=== PATIENT | male | born 1960 | race Caucasian/White ===

== ENCOUNTER 2018-08-06 16:02 | Emergency (ER) | payer BC, MEDICAID ==
--- NOTE | 2018-08-06 17:03 | EDM.PDOC ---
ED HPI GENERAL MEDICAL PROBLEM - General Chief Complaint: Cardiovascular Problem Stated Complaint: SOB Time Seen by Provider: 08/06/18 16:34 Source of Information: Reports: Patient, RN Notes Reviewed History Limitations: Reports: No Limitations - History of Present Illness INITIAL COMMENTS - FREE TEXT/NARRATIVE: The patient states that he was hospitalized in [place] in late April/ early May of this year for shortness of breath. He says that his workup included an echocardiogram, which found a left ventricular ejection fraction to be depressed at 37%. He was subsequently started on furosemide, 2 tablets every morning. The patient now presents to our ED stating that he has had dyspnea for more than a week. He states that he feels it primarily when he first gets up in the morning. He states that it is primarily with exertion, like the physical strain of getting up, but then he feels better once he gets going. He 2 pillow orthopnea "forever", which has not changed recently. He denies recent cough or fever. He states that he wheezes every now and again, but coughs, and it clears. No recent chest discomfort. No prior similar symptoms. The patient has a history of diabetes. He checks his blood glucose every other day, with a typical range of 90 to 200, which has not changed recently. The patient states that he ordinarily takes lisinopril for his blood pressure, however, for reasons unclear, he has not taken any of it since March or April of this year. The patient's initial BP in the ED today is 208/116. The patient also has a history of obstructive sleep apnea, however, he tells me that he has not used his assigned CPAP for about the past 10 years. The patient states that he takes about 8 different medicines for a variety of medical issues, but he does not know what the names of the medicines are, their doses, or even what specific medical conditions he takes them for. He did not bring his medications or the list of his medications with him. The patient's PCP is Dr. Jun Mckeon, in [place]. Middle Chest Pain Score (Numeric/FACES): 5 - Related Data Allergies Allergy/AdvReac Type Severity Reaction Status Date / Time codeine Allergy rash nausea Verified 09/13/13 07:43 Home Meds: Home Meds Furosemide 2 tab PO ASDIRECTED #40 tablet 08/06/18 [Rx] Lisinopril 1 tab PO QPM #10 tablet 08/06/18 [Rx] Past Medical History Cardiovascular History: Reports: CAD, Heart Failure, High Cholesterol, Hypertension (untreated since around Mar or Apr 2018), RI (x 2) Respiratory History: Reports: Sleep Apnea (noncompliant with CPAP) Musculoskeletal History: Reports: Arthritis Neurological History: Reports: Neuropathy, Diabetic Psychiatric History: Reports: Anxiety Endocrine/Metabolic History: Reports: Diabetes, Type II, Obesity/BMI 30+ - Past Surgical History HEENT Surgical History: Reports: Oral Surgery (wisdom teeth extraction) Cardiovascular Surgical History: Reports: Coronary Artery Stent (x 3), Other ( See Below) (3 coronary angiograms) Male Surgical History: Reports: Other (See Below) (Reduction of left cryptorchidism) Neurological Surgical History: Reports: Other (See Below) (Right hand nerve repair) Musculoskeletal Surgical History: Reports: Shoulder Surgery (left, open) Social & Family History - Family History Family Medical History: Noncontributory - Tobacco Use Smoking Status *Q: Former Smoker Month/Year Tobacco Last Used: Quit 1981 - Caffeine Use Caffeine Use: Reports: Tea - Alcohol Use Alcohol Use History: Yes Alcohol Use Frequency: Socially - Recreational Drug Use Recreational Drug Use: Yes Drug Use in Last 12 Months: Yes Recreational Drug Type: Reports: Marijuana/Hashish (smokes on occasion) Recreational Drug Use Frequency: Weekly - Living Situation & Occupation Living situation: Reports: , Other (with a coworker) Occupation: Employed ([employer]) ED ROS GENERAL - Review of Systems Review Of Systems: ROS reveals no pertinent complaints other than HPI. ED EXAM, GENERAL - Physical Exam Exam: See Below Exam Limited By: No Limitations General Appearance: Alert, WD/WN, No Apparent Distress Eye Exam: Bilateral Eye: EOMI, Normal Inspection Ears: Normal External Exam, Hearing Grossly Normal Nose: Normal Inspection Throat/Mouth: Normal Inspection, Normal Lips, Normal Voice, No Airway Compromise Head: Atraumatic, Normocephalic Neck: Normal Inspection, Full Range of Motion Respiratory/Chest: No Respiratory Distress, No Accessory Muscle Use, Decreased Breath Sounds, Splinting. No: Crackles, Rhonchi, Wheezing, Prolonged Expiration Cardiovascular: Normal Peripheral Pulses, Regular Rate, Rhythm, No Gallop, No JVD, No Murmur, No Rub Peripheral Pulses: 4+: Radial (L), Radial (R) GI/Abdominal: Normal Bowel Sounds, Soft, Non-Tender, No Organomegaly, No Distention, No Abnormal Bruit, No Mass, Other (Obese) (Male) Exam: Deferred Rectal (Males) Exam: Deferred Back Exam: Normal Inspection, Full Range of Motion, NT Extremities: Normal Inspection, Normal Range of Motion, Normal Capillary Refill , Other (Trace to 1+ pitting pretibial edema bilaterally) Neurological: Alert, Oriented, Normal Cognition, No Motor/Sensory Deficits Psychiatric: Normal Affect Skin Exam: Warm, Dry, Intact, Normal Color, No Rash EKG INTERPRETATION EKG Date: 08/06/18 Time: 16:13 Rhythm: NSR Rate (Beats/Min): 94 [place]igo: LAD-Left Antigo Deviation P-Wave: Enlarged (LAE) QRS: LBBB ST-T: Normal QT: Normal Comparison: NA - No Prior EKG Course - Vital Signs Last Recorded V/S: Last Vital Signs Temp 36.9 C 08/06/18 16:05 Pulse 100 08/06/18 16:05 Resp 18 08/06/18 16:05 BP 189/109 H 08/06/18 17:19 Pulse Ox 95 08/06/18 16:05 - Orders/Labs/Meds Orders: Active Orders 24 hr Category Date Time Status EKG Documentation Completion [RC] STAT Care 08/06/18 16:42 Active Ang Chest [CT] Stat Exams 08/06/18 17:37 Taken Chest 2V [CR] Stat Exams 08/06/18 16:42 Taken Labs: Laboratory Tests 08/06/18 08/06/18 08/06/18 Range/Units 16:15 16:15 16:15 WBC 10.74 H (4.23-9.07) K/mm3 RBC 4.74 (4.63-6.08) M/mm3 Hgb 13.4 L (13.7-17.5) gm/L Hct 40.5 (40.1-51.0) % MCV 85.4 (79.0-92.2) fl MCH 28.3 (25.7-32.2) pg MCHC 33.1 (32.2-35.5) g/dl RDW Std Deviation 47.6 H (35.1-43.9) fL Plt Count 314 (163-337) K/mm3 MPV 9.5 (9.4-12.3) fl Neutrophils % (Manual) 84 H (40-60) % Band Neutrophils % 1 (0-10) % Lymphocytes % (Manual) 11 L (20-40) % Atypical Lymphs % 0 % Monocytes % (Manual) 3 (2-10) % Eosinophils % (Manual) 1 (0.8-7.0) % Basophils % (Manual) 0 L (0.2-1.2) Platelet Estimate Adequate RBC Morph Comment Normal D-Dimer, Quantitative 0.68 H (0.19-0.50) mg/L Sodium 139 (136-145) mEq/L Potassium 4.0 (3.5-5.1) mEq/L Chloride 103 (98-107) mEq/L Carbon Dioxide 28 (21-32) mEq/L Anion Gap 12.0 (5-15) BUN 19 H (7-18) mg/dL Creatinine 1.2 (0.7-1.3) mg/dL Est Cr Clr Drug Dosing 70.97 mL/min Estimated GFR (MDRD) > 60 (>60) mL/min BUN/Creatinine Ratio 15.8 (14-18) Glucose 268 H (74-106) mg/dL Calcium 8.6 (8.5-10.1) mg/dL Total Bilirubin 0.6 (0.2-1.0) mg/dL AST 16 (15-37) U/L ALT 29 (16-63) U/L Alkaline Phosphatase 113 (46-116) U/L Troponin I 0.032 (0.00-0.056) ng/mL NT-Pro-B Natriuret Pep (0-125) pg/mL Total Protein 7.0 (6.4-8.2) g/dl Albumin 3.2 L (3.4-5.0) g/dl Globulin 3.8 gm/dL Albumin/Globulin Ratio 0.8 L (1-2) 08/06/ Range/Units 16:15 WBC (4.23-9.07) K/mm3 RBC (4.63-6.08) M/mm3 Hgb (13.7-17.5) gm/L Hct (40.1-51.0) % MCV (79.0-92.2) fl MCH (25.7-32.2) pg MCHC (32.2-35.5) g/dl RDW Std Deviation (35.1-43.9) fL Plt Count (163-337) K/mm3 MPV (9.4-12.3) fl Neutrophils % (Manual) (40-60) % Band Neutrophils % (0-10) % Lymphocytes % (Manual) (20-40) % Atypical Lymphs % % Monocytes % (Manual) (2-10) % Eosinophils % (Manual) (0.8-7.0) % Basophils % (Manual) (0.2-1.2) Platelet Estimate RBC Morph Comment D-Dimer, Quantitative (0.19-0.50) mg/L Sodium (136-145) mEq/L Potassium (3.5-5.1) mEq/L Chloride (98-107) mEq/L Carbon Dioxide (21-32) mEq/L Anion Gap (5-15) BUN (7-18) mg/dL Creatinine (0.7-1.3) mg/dL Est Cr Clr Drug Dosing mL/min Estimated GFR (MDRD) (>60) mL/min BUN/Creatinine Ratio (14-18) Glucose (74-106) mg/dL Calcium (8.5-10.1) mg/dL Total Bilirubin (0.2-1.0) mg/dL AST (15-37) U/L ALT (16-63) U/L Alkaline Phosphatase (46-116) U/L Troponin I (0.00-0.056) ng/mL NT-Pro-B Natriuret Pep 1811 H (0-125) pg/mL Total Protein (6.4-8.2) g/dl Albumin (3.4-5.0) g/dl Globulin gm/dL Albumin/Globulin Ratio (1-2) Meds: Medications Discontinued Medications Generic Name Dose Route Start Last Admin Trade Name Freq PRN Reason Stop Dose Admin Furosemide 40 mg 08/06/18 17:26 08/06/18 17:35 Lasix IVPUSH 08/06/18 17:27 40 mg NOW ONE Administration Iohexol 75 ml 08/06/18 18:13 08/06/18 18:45 Omnipaque IVPUSH 08/06/18 18:14 75 ml ONETIME ONE Administration Lisinopril 20 mg 08/06/18 17:09 08/06/18 17:19 Prinivil PO 08/06/18 17:10 20 mg ONETIME STA Administration - Re-Assessments/Exams Free Text/Narrative Re-Assessment/Exam: 08/06/18 16:58 The etiology of the patient's dyspnea is not entirely clear. It may be, as the patient suspects, due to CHF, however, I want to exclude other causes as well. I ordered an ECG, a chest x-ray, and blood work. As per the HPI, the patient's initial BP in the ED is 208/116. The patient does not know the dose of lisinopril that he hasn't taken since March or April - I'm going to order 20 mg of oral lisinopril. 08/06/18 17:24 2 view chest radiograph reviewed. The cardiac silhouette is within normal limits. There is pulmonary vascular congestion, consistent with congestive heart failure. No pleural effusions. No focal infiltrate, although there may be some atelectasis seen at the posterior sulcus. No pneumothorax. Formal read per the Radiologist pending. The patient's CMP is remarkable for a BUN slightly elevated at 19, with a normal creatinine. His blood glucoses elevated at 268. The patient's troponin is within normal limits. The patient's BNP is only mildly elevated at 1811. The patient's mildly elevated BNP is consistent with the chest x-ray not showing cardiomegaly, however, with chest x-ray showing pulmonary vascular congestion, I suspect that the patient is suffering from diastolic dysfunction, likely related to his untreated hypertension. I will order 40 mg of IV furosemide. 08/06/18 17:38 The patient's D-dimer has returned elevated at 0.68. I have ordered a CT angiogram of the chest to evaluate for a PE. Because the patient has pulmonary vascular congestion, I am not going to order IV fluid. 08/06/18 19:27 The patient's CBC is remarkable for WBC count elevated at 10.74, but with only 1 % bandemia. The remainder of the CBC is unremarkable. CT angiogram of the chest is read by [facility] as: 1. Bilateral pleural effusions. 2. Mild cardiomegaly. 3. Ground-glass opacifications in both lung yi and pulmonary vascular engorgement. These findings are most compatible with congestive heart failure and pulmonary edema. 4. Calcifications along the anterior longitudinal ligament the raise the question of ankylosing spondylitis. 5. No sign of pulmonary embolism. 08/06/18 19:49 Test results discussed with the patient. He called his roommate and got his actual current medication list which includes furosemide 20 mg, 2 tablets QAM. He had previously been prescribed Bumex 1 mg BID, but this was discontinued in May after the patient developed blurry vision. The patient states that he feels much better after diuresing 3 urinals, after receiving 40 mg of IV Lasix. Going forward, I will have the patient increase his furosemide to 40 mg po at 6 AM, as he is currently taking, then add an additional 40 mg at noon. I will also write a prescription for lisinopril 20 mg po QPM. The patient is to follow-up with his PCP at the next available appointment, which he expects will be this week or next. With respect to the patient's hyperglycemia, the patient is confident that his blood glucose will come down as his blood pressure comes down. Departure - Departure Time of Disposition: 19:51 Disposition: Home, Self-Care 01 Condition: Good Clinical Impression: Congestive heart failure (CHF), Hypertension, Hyperglycemia due to type 2 diabetes mellitus Prescriptions: Furosemide 2 tab PO ASDIRECTED #40 tablet Lisinopril 1 tab PO QPM #10 tablet Referrals: Jun Mckeon MD [Primary Care Provider] - Forms: ED Department Discharge Additional Instructions: You were seen in the emergency room for shortness of breath for more than a week. Workup in the ER included blood work, a chest x-ray, a CT angiogram of your chest, and an ECG. Your blood pressure was significantly elevated in the ER. You were given 20 mg of oral lisinopril. Your workup found your blood sugar to be significantly elevated at 268. You expect your blood sugar to come down as your blood pressure comes down. The chest x-ray and CT scan of your chest both found pulmonary edema, indicating decompensated congestive heart failure. You were given 40 mg of IV furosemide in the ER. Prescriptions for lisinopril and furosemide have been provided to you. Take one tablet of lisinopril every evening, as prescribed. Take 2 tablets (40 mg) of furosemide every morning at 6:00, then another 2 tablets (40 mg) at noon, every day. Follow-up with your PCP, Dr. Jun Mckeon, at the next available appointment. When there, please discuss the new prescriptions that you have been given, to see if he wants to continue them. If any other problems, please do not hesitate to return to the ER. - My Orders Last 24 Hours: My Active Orders 08/06/18 16:42 EKG Documentation Completion [RC] STAT Chest 2V [CR] Stat 08/06/18 17:37 Ang Chest [CT] Stat - Assessment/Plan Last 24 Hours: My Active Orders 08/06/18 16:42 EKG Documentation Completion [RC] STAT Chest 2V [CR] Stat 08/06/18 17:37 Ang Chest [CT] Stat
[2018-08-06] MEDS ORDERED: Lisinopril 20 MG Tab PO STA (17:09)
[2018-08-06] MEDS ORDERED: Furosemide 40 MG/4 ML VIAL IVPUSH ONE (17:26)
[2018-08-06] MEDS ORDERED: Iohexol 350 MG/ML 75 ML Bottle IVPUSH ONE (18:13)
[2018-08-06] MEDS ORDERED: Iopamidol 755 Mg/ML 100 ML Bottle IVPUSH ONE (18:14)
--- NOTE | 2018-08-08 10:00 | CT ---
CT chest Technique: Multiple axial sections were obtained from above the lung apices inferiorly through the lung bases. Intravenous contrast was utilized. Study has been performed as a pulmonary angiogram protocol. Comparison: No prior chest CT, previous chest x-ray performed earlier on the same day (4:59 PM). Findings: Small bilateral pleural effusions are seen. Mediastinum and hilar regions show no adenopathy or mass. Moderately prominent coronary artery calcification is seen. Pulmonary arteries show no filling defects to indicate pulmonary embolism. Heart size is slightly prominent. Small portion of the visualized upper abdominal structures are within normal limits. No acute parenchymal change is seen. Hazy perivascular change is noted which is felt compatible with pulmonary vascular congestion. Bone window settings were reviewed which show no acute osseous abnormality. Degenerative change is scattered within the spine with disc space narrowing and endplate osteophytes. Impression: 1. Findings compatible with CHF. 2. No findings of pulmonary embolism. 3. Other incidental findings. Diagnostic code #3 I agree with preliminary report from [facility], finalized on 08/06/18, 8:20 PM Central Time
--- NOTE | 2018-08-08 10:12 | CR ---
Chest: Two views of the chest were obtained. Comparison: No prior chest x-ray, subsequent chest CT performed on the same day is available. Findings: Heart size at the upper limits of normal. Slight tortuosity of the thoracic aorta is seen. Small bilateral pleural effusions are seen. Pulmonary vessels appear to be mildly congested. Bony structures show degenerative spurring within the spine. Impression: 1. Findings felt compatible with mild CHF. Diagnostic code #3
== END 2018-08-06 20:36 | disposition home or self-care (01) ==
LOC: JD.ED 16:02
DX: I11.0 Hypertensive heart disease with heart failure (principal); I50.9 Heart failure, unspecified; E11.65 Type 2 diabetes mellitus with hyperglycemia; I25.10 Atherosclerotic heart disease of native coronary artery without angina pectoris; E11.40 Type 2 diabetes mellitus with diabetic neuropathy, unspecified; Z87.891 Personal history of nicotine dependence; Z88.5 Allergy status to narcotic agent
CPT/HCPCS: 36415; 71046; 71275; 80053; 83880; 84484; 85007; 85027; 85379; 93005; 96374; 99285; A9270; J1940; Q9967; 93010; 99284

== ENCOUNTER 2018-08-21 06:18 | Emergency (ER) | payer MEDICAID ==
[2018-08-21] MEDS ORDERED: Sodium Chloride 0.9% 10 ML Syringe FLUSH PRN (07:07)
[2018-08-21] MEDS ORDERED: Furosemide 40 MG/4 ML VIAL IVPUSH ONE (07:08)
--- NOTE | 2018-08-21 08:28 | CR ---
Chest: Portable view of the chest was obtained. Comparison: Prior chest x-ray of 08/06/18. Heart is mildly enlarged. Lungs are clear. No acute pulmonary vascular congestion is seen. No pleural effusions are identified. Bony structures are grossly intact. Impression: 1. Nothing acute is appreciated on portable chest x-ray. Diagnostic code #2
--- NOTE | 2018-08-21 08:29 | EDM.PDOC ---
ED HPI GENERAL MEDICAL PROBLEM - General Chief Complaint: Respiratory Problem Stated Complaint: SOB Time Seen by Provider: 08/21/18 06:57 Source of Information: Reports: Patient History Limitations: Reports: No Limitations - History of Present Illness INITIAL COMMENTS - FREE TEXT/NARRATIVE: The patient presents with shortness of breath. He noticed some shortness of breath last night. This morning it was worse. He has no chest pain. He has no fever, chills, cough, congestion, runny nose, abdominal pain, nausea or vomiting. He has no edema in his legs. He has a history of CHF. He is on lasix 40mg 2 times per day. He had no changes to his medications recently. Three weeks ago he did go up with his lasix twice per day. Onset: Gradual Duration: Day(s): (Last night) Severity: Moderate Improves with: Reports: Immobilization Worsens with: Reports: Movement Associated Symptoms: Reports: Shortness of Breath. Denies: Chest Pain, Cough, Fever/Chills, Headaches, Nausea/Vomiting - Related Data Allergies Allergy/AdvReac Type Severity Reaction Status Date / Time codeine Allergy rash nausea Verified 08/21/18 06:33 Home Meds: Home Meds Apixaban [Eliquis] 5 mg PO BID 08/21/18 [History] Carvedilol 25 mg PO BID 08/21/18 [History] Clopidogrel Bisulfate [Clopidogrel] 75 mg PO DAILY 08/21/18 [History] Furosemide 40 mg PO ASDIRECTED 08/21/18 [History] Glimepiride 4 mg PO DAILY 08/21/18 [History] Insulin Aspart [NovoLOG] 10 unit SUBCUT BID 08/21/18 [History] Insulin Lispro [Humalog] 5 - 10 unit SUBCUT BID PRN 08/21/18 [History] Isosorbide Mononitrate 10 mg PO DAILY 08/21/18 [History] Lisinopril 20 mg PO QPM 08/21/18 [History] atorvaSTATin [Lipitor] 40 mg PO DAILY 08/21/18 [History] diazePAM [Valium] 5 mg PO BID PRN 08/21/18 [History] metFORMIN [Glucophage XR] 1,000 mg PO BID 08/21/18 [History] Past Medical History Cardiovascular History: Reports: CAD, Heart Failure, High Cholesterol, Hypertension, [place] Respiratory History: Reports: Sleep Apnea Musculoskeletal History: Reports: Arthritis Neurological History: Reports: Neuropathy, Diabetic Psychiatric History: Reports: Anxiety Endocrine/Metabolic History: Reports: Diabetes, Type II, Obesity/BMI 30+ - Past Surgical History HEENT Surgical History: Reports: Oral Surgery Cardiovascular Surgical History: Reports: Coronary Artery Stent, Other (See Below) Other GI Surgeries/Procedures: 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 Male Surgical History: Reports: Other (See Below) Neurological Surgical History: Reports: Other (See Below) Musculoskeletal Surgical History: Reports: Shoulder Surgery Social & Family History - Family History Family Medical History: Noncontributory - Tobacco Use Smoking Status *Q: Never Smoker - Caffeine Use Caffeine Use: Reports: Coffee, Tea - Recreational Drug Use Recreational Drug Use: Yes Recreational Drug Type: Reports: Marijuana/Hashish - Living Situation & Occupation Living situation: Reports: , Other (with a coworker) Occupation: Employed ([employer]) ED ROS GENERAL - Review of Systems Review Of Systems: See Below Constitutional: Reports: No Symptoms HEENT: Reports: No Symptoms Respiratory: Reports: Shortness of Breath. Denies: Cough Cardiovascular: Reports: No Symptoms Endocrine: Reports: No Symptoms GI/Abdominal: Reports: No Symptoms : Reports: No Symptoms Musculoskeletal: Reports: No Symptoms ED EXAM, GENERAL - Physical Exam Exam: See Below Exam Limited By: No Limitations General Appearance: Alert, No Apparent Distress Ears: Normal External Exam Nose: Normal Inspection Head: Atraumatic, Normocephalic Neck: Normal Inspection Respiratory/Chest: No Respiratory Distress, Decreased Breath Sounds, Rales Cardiovascular: Regular Rate, Rhythm, No Edema, No Murmur GI/Abdominal: Soft, Non-Tender, No Organomegaly, No Mass Back Exam: Normal Inspection Extremities: Normal Inspection Neurological: Alert, Oriented, No Motor/Sensory Deficits EKG INTERPRETATION EKG Date: 08/21/18 Time: 06:24 Rhythm: NSR Rate (Beats/Min): 87 [place]: Normal P-Wave: Present QRS: LBBB ST-T: Normal QT: Normal Course - Vital Signs Last Recorded V/S: Last Vital Signs Temp 98.1 F 08/21/18 06:24 Pulse 85 08/21/18 06:24 Resp 22 H 08/21/18 06:24 BP 205/117 H 08/21/18 06:24 Pulse Ox 90 L 08/21/18 06:24 - Orders/Labs/Meds Orders: Active Orders 24 hr Category Date Time Status Cardiac Monitoring [RC] . DIRECTED Care 08/21/18 07:07 Active EKG Documentation Completion [RC] STAT Care 08/21/18 07:07 Active Peripheral IV Care [RC] . DIRECTED Care 08/21/18 07:08 Active Sodium Chloride 0.9% [Saline Flush] Med 08/21/18 07:07 Active 10 ml FLUSH ASDIRECTED PRN Peripheral IV Insertion Adult [OM.PC] Stat Oth 08/21/18 07:07 Ordered Medication Orders Sodium Chloride (Saline Flush) 10 ml FLUSH ASDIRECTED PRN PRN Reason: Keep Vein Open Last Admin: 08/21/18 07:29 Dose: 10 ml Labs: Laboratory Tests 08/21/18 08/21/18 08/21/18 Range/Units 07:25 07:25 07:25 WBC 11.01 H (4.23-9.07) K/mm3 RBC 4.52 L (4.63-6.08) M/mm3 Hgb 12.8 L (13.7-17.5) gm/L Hct 39.2 L (40.1-51.0) % MCV 86.7 (79.0-92.2) fl MCH 28.3 (25.7-32.2) pg MCHC 32.7 (32.2-35.5) g/dl RDW Std Deviation 46.9 H (35.1-43.9) fL Plt Count 264 (163-337) K/mm3 MPV 8.8 L (9.4-12.3) fl Neut % (Auto) 82.6 H (34.0-67.9) % Lymph % (Auto) 9.7 L (21.8-53.1) % [place] % (Auto) 5.9 (5.3-12.2) % Eos % (Auto) 1.4 (0.8-7.0) Baso % (Auto) 0.2 (0.1-1.2) % Neut # (Auto) 9.10 H (1.78-5.38) K/mm3 Lymph # (Auto) 1.07 L (1.32-3.57) K/mm3 [place] # (Auto) 0.65 (0.30-0.82) K/mm3 Eos # (Auto) 0.15 (0.04-0.54) K/mm3 Baso # (Auto) 0.02 (0.01-0.08) K/mm3 Manual Slide Review Abnormal smear Sodium 140 (136-145) mEq/L Potassium 3.8 (3.5-5.1) mEq/L Chloride 105 (98-107) mEq/L Carbon Dioxide 27 (21-32) mEq/L Anion Gap 11.8 (5-15) BUN 22 H (7-18) mg/dL Creatinine 1.2 (0.7-1.3) mg/dL Est Cr Clr Drug Dosing 73.21 mL/min Estimated GFR (MDRD) > 60 (>60) mL/min BUN/Creatinine Ratio 18.3 H (14-18) Glucose 278 H (74-106) mg/dL Calcium 8.7 (8.5-10.1) mg/dL Total Bilirubin 0.5 (0.2-1.0) mg/dL AST 13 L (15-37) U/L ALT 26 (16-63) U/L Alkaline Phosphatase 106 (46-116) U/L Troponin I 0.040 (0.00-0.056) ng/mL NT-Pro-B Natriuret Pep 1950 H (0-125) pg/mL Total Protein 6.5 (6.4-8.2) g/dl Albumin 3.1 L (3.4-5.0) g/dl Globulin 3.4 gm/dL Albumin/Globulin Ratio 0.9 L (1-2) Meds: Medications Generic Name Dose Route Start Last Admin Trade Name Freq PRN Reason Stop Dose Admin Sodium Chloride 10 ml 08/21/18 07:07 08/21/18 07:29 Saline Flush FLUSH 10 ml ASDIRECTED PRN Administration Keep Vein Open Discontinued Medications Generic Name Dose Route Start Last Admin Trade Name Freq PRN Reason Stop Dose Admin Furosemide 80 mg 08/21/18 07:08 08/21/18 07:29 Lasix IVPUSH 08/21/18 07:09 80 mg NOW ONE Administration - Re-Assessments/Exams Free Text/Narrative Re-Assessment/Exam: 08/21/18 08:27 I ordered an IV saline lock, lasix 80mg IV, labs, EKG and CXR. His EKG shows a LBBB with no acute changes. His CXR shows cardiomegaly but no congestion. His WBC was elevated at 11.01. His Hgb was a little low at 12.8. His creatinine was normal at 1.2. His glucose was elevated at 278. His troponin was normal at 0.4. His BNP was elevated at 1950. 08/21/18 08:32 He has urinated a couple times and he is sleeping now. I will have him go up with his lasix in the morning for 3 days and follow up with his doctor in 1 week. Departure - Departure Time of Disposition: 08:35 Disposition: Home, Self-Care 01 Condition: Good Clinical Impression: Congestive heart failure (CHF) Qualifiers: Heart failure type: unspecified Heart failure chronicity: acute on chronic Qualified Code(s): I50.9 - Heart failure, unspecified - Discharge Information *PRESCRIPTION DRUG MONITORING PROGRAM REVIEWED*: Not Applicable *COPY OF PRESCRIPTION DRUG MONITORING REPORT IN PATIENT ZELDA: Not Applicable Referrals: Jun Mckeon MD [Primary Care Provider] - 1 Week Forms: ED Department Discharge Additional Instructions: Take 60mg of lasix or 3 pills in the morning for 3 days and continue with the noon dose of 40mg. Take the rest of your medications the same. Please return if you are worse. - My Orders Last 24 Hours: My Active Orders 08/21/18 07:07 Cardiac Monitoring [RC] . DIRECTED EKG Documentation Completion [RC] STAT Sodium Chloride 0.9% [Saline Flush] 10 ml FLUSH ASDIRECTED PRN Peripheral IV Insertion Adult [OM.PC] Stat 08/21/18 07:08 Peripheral IV Care [RC] . DIRECTED - Assessment/Plan Last 24 Hours: My Active Orders 08/21/18 07:07 Cardiac Monitoring [RC] . DIRECTED EKG Documentation Completion [RC] STAT Sodium Chloride 0.9% [Saline Flush] 10 ml FLUSH ASDIRECTED PRN Peripheral IV Insertion Adult [OM.PC] Stat 08/21/18 07:08 Peripheral IV Care [RC] . DIRECTED
== END 2018-08-21 08:42 | disposition home or self-care (01) ==
LOC: JD.ED 06:18
DX: I11.0 Hypertensive heart disease with heart failure (principal); I50.9 Heart failure, unspecified; E11.40 Type 2 diabetes mellitus with diabetic neuropathy, unspecified; I25.10 Atherosclerotic heart disease of native coronary artery without angina pectoris; I25.2 Old myocardial infarction; E66.9 Obesity, unspecified; Z79.4 Long term (current) use of insulin; Z79.899 Other long term (current) drug therapy; Z95.5 Presence of coronary angioplasty implant and graft; Z98.890 Other specified postprocedural states; Z88.5 Allergy status to narcotic agent
CPT/HCPCS: 36415; 71045; 80053; 83880; 84484; 85025; 93005; 96374; 99285; J1940; 93010; 99284